=== PATIENT | female | born 1975 | race Two or more races ===

== ENCOUNTER 2023-10-30 18:18 | Emergency (ER) | payer OTHER ==
[~2023-10-30] VITALS: Ht 152.4 cm; Wt 86.2 kg
[2023-10-30] MEDS ORDERED: CEFTRIAXONE SODIUM 1,000 MG VIAL IM STA (19:43)
[2023-10-30] MEDS ORDERED: GUAIFENESIN 200 MG/10 ML BLIST.PACK PO STA (19:43)
[2023-10-30] MEDS ORDERED: ZITHROMAX500 MG PO (20:12)
[2023-10-30] MEDS ORDERED: BUDESONIDE0.5 MG/2 M IH (20:12)
== END 2023-10-30 20:27 | disposition home or self-care (01) ==
LOC: ER 18:18
DX: G93.31 Postviral fatigue syndrome (principal); Z87.09 Personal history of other diseases of the respiratory system